=== PATIENT | male | born 2000 | race Caucasian/White ===

== ENCOUNTER 2021-09-26 02:18 | Emergency (ER) | payer BC ==
[2021-09-26] MEDS ORDERED: Ondansetron PF 4 MG/2 ML Vial ONE (02:36)
== END 2021-09-26 05:33 | disposition home or self-care (01) ==
LOC: ERS 02:18
DX: F12.10 Cannabis abuse, uncomplicated (principal); S09.90XA Unspecified injury of head, initial encounter; X58.XXXA Exposure to other specified factors, initial encounter
CPT/HCPCS: 36416; 70450; 72125; 96374; J2405